=== PATIENT | female | born 1960 | race Caucasian/White ===

== ENCOUNTER 2025-05-31 09:09 | Day surgery (SDC) | payer MEDICARE, OTHER ==
[~2025-05-31] VITALS: Ht 149.9 cm; Wt 48.1 kg
[~2025-05-31 09:09] MED LIST: SODIUM CHLORIDE 0.9% 1,000 ML ONE
[2025-05-31] MEDS ORDERED: MONT-35 PO (09:53)
[2025-05-31] MEDS ORDERED: AMLO-258 PO (09:53)
[2025-05-31] MEDS ORDERED: URSO300C4 PO (09:53)
[2025-05-31] MEDS ORDERED: OMEP-148 PO (09:53)
[2025-05-31] MEDS ORDERED: ATOR10TA PO (09:53)
[2025-05-31] MEDS ORDERED: DOCU-385 PO (09:53)
[2025-05-31] MEDS ORDERED: LOSA-382 PO (09:53)
[2025-05-31] MEDS ORDERED: CETI10TA77 PO (09:53)
[2025-05-31] MEDS ORDERED: HYDR200T38 PO (09:53)
[2025-05-31] MEDS ORDERED: TRAZ-252 PO (09:53)
[2025-05-31] MEDS: SODIUM CHLORIDE 0.9% 1,000 ML IV ONE (10:09)
[2025-05-31 10:51] LABS: GLUCOMETER DEV NAME(LOC) SDS.; GLUCOSE,POINT OF CARE 140 MG/DL (70-110)
== END 2025-05-31 12:50 | disposition home or self-care (01) ==
LOC: SDS 09:09
PROVIDERS: ATTEND Internal Medicine
DX: I85.00 Esophageal varices without bleeding (principal); K74.60 Unspecified cirrhosis of liver; K44.9 Diaphragmatic hernia without obstruction or gangrene; K76.6 Portal hypertension; K31.89 Other diseases of stomach and duodenum; I10 Essential (primary) hypertension; E11.9 Type 2 diabetes mellitus without complications; Z79.899 Other long term (current) drug therapy; Z90.49 Acquired absence of other specified parts of digestive tract; Z98.41 Cataract extraction status, right eye; Z98.42 Cataract extraction status, left eye; Z98.890 Other specified postprocedural states
CPT/HCPCS: 43244; 82962; J7030